=== PATIENT | male | born 1955 | race African-American/Black ===

== ENCOUNTER 2023-08-21 10:49 | Inpatient (IN) | payer OTHER ==
[2023-08-21 12:21] VITALS: BMI 19.3
[2023-08-21] MEDS ORDERED: guaiFENesin 600 MG TABLET.ER (FP) PO PRN (13:32)
[2023-08-21] MEDS ORDERED: BENZONATATE 200 MG CAPSULE PO PRN (13:32)
[2023-08-21] MEDS ORDERED: ACETAMINOPHEN 325 MG TABLET (FP) PO PRN (13:32)
[2023-08-21] MEDS ORDERED: IBUPROFEN 400 MG TABLET (FP) PO PRN (13:32)
[2023-08-21] MEDS ORDERED: BISMUTH SUBSALICYLATE 524 MG/30 ML PO PRN (13:32)
[2023-08-21] MEDS ORDERED: NALOXONE HCL 0.4 MG/ML VIAL IM PRN (13:32)
[2023-08-21] MEDS ORDERED: NICOTINE POLACRILEX 2 MG GUM BUC PRN (13:32)
[2023-08-21] MEDS ORDERED: NALOXONE HCL (KLOXXADO) 8 MG SPRAY NS PRN (13:32)
[2023-08-21] MEDS ORDERED: BACLOFEN 10 MG TABLET (FP) PO PRN (13:32)
[2023-08-21] MEDS ORDERED: MAG HYDROX/AL HYDROX/SIMETH 30 ML UNIT-DOSE CUP PO PRN (13:32)
[2023-08-21] MEDS ORDERED: ONDANSETRON *ODT* 4 MG TABLET SL PRN (13:32)
[2023-08-21] MEDS ORDERED: BENZOCAINE/MENTHOL (CHLORASEPTIC ) LOZENGE MM PRN (13:32)
[2023-08-21] MEDS ORDERED: DICYCLOMINE HCL 10 MG CAPSULE PO PRN (13:32)
[2023-08-21] MEDS ORDERED: POLYETHYLENE GLYCOL (HEALTHYLAX) 3350 17 GM PACKET PO PRN (13:32)
[2023-08-21] MEDS ORDERED: MAGNESIUM HYDROX 2400MG/30ML ORAL SUSPENSION 30 ML CUP PO PRN (13:32)
[2023-08-21] MEDS: cloNIDine HCL 0.1 MG TABLET PO PRN ×2 (14:34→22:41)
[2023-08-21] MEDS ORDERED: cloNIDine HCL 0.1 MG TABLET ONE (14:36)
[2023-08-21] MEDS ORDERED: ONDANSETRON *ODT* 4 MG TABLET ONE (14:36)
[2023-08-21] MEDS ORDERED: methaDONE HCL 10 MG TABLET (FOR DETOX USE ONLY) PO ONE (14:45)
[2023-08-21] MEDS ORDERED: methaDONE HCL 10 MG TABLET (FOR DETOX USE ONLY) ONE (14:50)
[2023-08-21] MEDS: LORazepam 1 MG TABLET PO SCH ×2 (17:04→22:28)
[2023-08-21] MEDS: PRAZOSIN HCL 1 MG CAPSULE PO SCH (21:46)
[2023-08-21] MEDS: hydrALAZINE HCL 25 MG TABLET (FP) PO SCH (21:47)
[2023-08-21] MEDS: IBUPROFEN 600 MG TABLET (FP) PO PRN (21:47)
[2023-08-21] MEDS: THIAMINE HCL 100 MG TABLET (FP) PO SCH (21:47)
[2023-08-21] MEDS ORDERED: MELATONIN 5 MG TABLETS PO SCH (22:00)
[2023-08-21] MEDS: LIDOCAINE PATCH REMOVAL MC SCH (22:30)
[2023-08-22] MEDS: LORazepam 1 MG TABLET PO SCH ×4 (05:44→22:17)
[2023-08-22] MEDS: TAMSULOSIN HCL 0.4 MG CAP PO SCH (08:24)
[2023-08-22] MEDS: LIDOCAINE 5% TOPICAL PATCH TP SCH (09:57)
[2023-08-22] MEDS: PRENATAL VITAMINS W/ FOLIC ACID TABLET (FP) PO SCH (09:57)
[2023-08-22] MEDS: FINASTERIDE 5 MG TABLET (FP) PO SCH (09:58)
[2023-08-22] MEDS: hydrALAZINE HCL 25 MG TABLET (FP) PO SCH ×2 (09:58→21:00)
[2023-08-22] MEDS: PRAZOSIN HCL 1 MG CAPSULE PO SCH ×2 (09:58→21:00)
[2023-08-22 10:14] LABS: HEMATOCRIT 39.2 % (35.4-49); HEMOGLOBIN 12.3 GM/dL (11.7-16.9); MCH 26.5 pg (25.7-33.7); MCHC 31.3 g/dl (32.0-35.9); MEAN CELL VOLUME 84.7 fl (80-96); MEAN PLT VOLUME 8.1 fl (7.5-11.1); PLATELET COUNT 245 10^3/uL (134-434); RBC 4.63 M/mm3 (4.00-5.60); RDW 15.7 % (11.9-15.9); WHITE BLOOD COUNT 6.5 K/mm3 (4.0-10.0)
[2023-08-22 10:18] LABS: CHLORIDE 106 mmol/L (98-107); POTASSIUM 4.8 mmol/L (3.5-5.1); SODIUM 139 mmol/L (136-145)
[2023-08-22 10:23] LABS: CALCIUM 8.8 mg/dL (8.5-10.1); GLUCOSE,RANDOM 87 mg/dL (74-106)
[2023-08-22 10:24] LABS: ALBUMIN 3.4 g/dl (3.4-5.0); ANION GAP 5 mmol/L (4-13); BLOOD UREA NITROGEN 32.1 mg/dL (7-18); CO2 28 mmol/L (21-32)
[2023-08-22 10:26] LABS: SGPT/ALT 26 U/L (13-61)
[2023-08-22 10:27] LABS: SGOT/AST 23 U/L (15-37)
[2023-08-22 10:28] LABS: BILIRUBIN,TOTAL 0.5 mg/dL (0.2-1)
[2023-08-22 10:29] LABS: ALK PHOS 65 U/L (45-117)
[2023-08-22 10:31] LABS: TOT PROT 7.5 g/dl (6.4-8.2)
[2023-08-22] MEDS ORDERED: traZODone HCL 100 MG TABLET (FP) PO SCH (22:00)
[2023-08-22] MEDS: THIAMINE HCL 100 MG TABLET (FP) PO SCH (22:17)
[2023-08-22] MEDS: LIDOCAINE PATCH REMOVAL MC SCH (22:18)
[2023-08-22] MEDS: traZODone HCL 50 MG TABLET (FP) PO SCH (22:19)
[2023-08-23] MEDS: IBUPROFEN 600 MG TABLET (FP) PO PRN (00:03)
[2023-08-23] MEDS ORDERED: LORazepam 1 MG TABLET PO SCH (05:00)
[2023-08-23] MEDS ORDERED: LORazepam 0.5 MG TABLET PO SCH (05:52)
[2023-08-23] MEDS: LORazepam 1 MG TABLET PO PRN ×2 (06:18→14:13)
[2023-08-23] MEDS: LORazepam 0.5 MG TABLET PO SCH ×5 (06:37→22:03)
[2023-08-23] MEDS: TAMSULOSIN HCL 0.4 MG CAP PO SCH (08:50)
[2023-08-23] MEDS ORDERED: methaDONE HCL 10 MG TABLET (FOR DETOX USE ONLY) PO ONE (10:00)
[2023-08-23] MEDS: PRENATAL VITAMINS W/ FOLIC ACID TABLET (FP) PO SCH (10:23)
[2023-08-23] MEDS: hydrALAZINE HCL 25 MG TABLET (FP) PO SCH ×2 (10:23→22:02)
[2023-08-23] MEDS: PRAZOSIN HCL 1 MG CAPSULE PO SCH ×2 (10:23→22:02)
[2023-08-23] MEDS: FINASTERIDE 5 MG TABLET (FP) PO SCH (10:23)
[2023-08-23] MEDS: LIDOCAINE 5% TOPICAL PATCH TP SCH (10:25)
[2023-08-23] MEDS ORDERED: FLU VACCINE (FLULAVAL) PF 60 MCG/0.5 ML SYRINGE 2023-2024 IM ONE (15:31)
[2023-08-23] MEDS: traZODone HCL 50 MG TABLET (FP) PO SCH (22:02)
[2023-08-23] MEDS: LIDOCAINE PATCH REMOVAL MC SCH (22:02)
[2023-08-23] MEDS: THIAMINE HCL 100 MG TABLET (FP) PO SCH (22:02)
[2023-08-24] MEDS ORDERED: LORazepam 0.5 MG TABLET PO PRN
[2023-08-24] MEDS: FINASTERIDE 5 MG TABLET (FP) PO SCH (09:26)
[2023-08-24] MEDS: hydrALAZINE HCL 25 MG TABLET (FP) PO SCH (09:26)
[2023-08-24] MEDS: PRENATAL VITAMINS W/ FOLIC ACID TABLET (FP) PO SCH (09:26)
[2023-08-24] MEDS: TAMSULOSIN HCL 0.4 MG CAP PO SCH (09:26)
[2023-08-24] MEDS: PRAZOSIN HCL 1 MG CAPSULE PO SCH (09:26)
[2023-08-24] MEDS: LIDOCAINE 5% TOPICAL PATCH TP SCH (09:27)
[2023-08-24] MEDS ORDERED: LORazepam 0.5 MG TABLET PO SCH (10:00)
[2023-08-24 12:18] LABS: CREATININE 1.9 mg/dL (0.55-1.3)
[2023-08-24 16:56] VITALS: BP 128/89; PULSE 90; RESP 18; TEMP 98
[2023-08-25] MEDS ORDERED: LORazepam 0.5 MG TABLET PO ONE (05:00)
[2023-08-25] MEDS ORDERED: methaDONE HCL 10 MG TABLET (FOR DETOX USE ONLY) PO ONE (10:00)
== END 2023-08-24 18:34 | disposition home or self-care (01) | DRG 773 ==
LOC: YASAS 10:49 → Y3N 15:23
PROVIDERS: ADMIT Allergy & Immunology; ATTEND Surgery
PROC: HZ2ZZZZ Detoxification Services for Substance Abuse Treatment (ICD-10-PCS; principal; 2023-08-21)
DX: F11.23 Opioid dependence with withdrawal (principal); F10.230 Alcohol dependence with withdrawal, uncomplicated; F14.20 Cocaine dependence, uncomplicated; F17.210 Nicotine dependence, cigarettes, uncomplicated; F19.24 Other psychoactive substance dependence with psychoactive substance-induced mood disorder; F31.9 Bipolar disorder, unspecified; I10 Essential (primary) hypertension; M17.0 Bilateral primary osteoarthritis of knee; R26.89 Other abnormalities of gait and mobility; Z91.81 History of falling; Z63.4 Disappearance and death of family member
CPT/HCPCS: 36415; 71046-TC-FY; 80053; 80307; 82565; 84520; 85027; 86780; 87635; 90686; 93005; 93010; G0008; J0475; Q0162

== ENCOUNTER 2023-10-13 10:22 | Inpatient (IN) | payer OTHER ==
[2023-10-13 11:03] VITALS: BMI 19.7
[2023-10-13] MEDS ORDERED: NALOXONE HCL (KLOXXADO) 8 MG SPRAY NS PRN (11:54)
[2023-10-13] MEDS ORDERED: IBUPROFEN 400 MG TABLET (FP) PO PRN (11:54)
[2023-10-13] MEDS ORDERED: LOPERAMIDE HCL 2 MG CAPSULE PO PRN (11:54)
[2023-10-13] MEDS ORDERED: LORazepam 1 MG TABLET PO PRN (11:54)
[2023-10-13] MEDS ORDERED: methaDONE HCL 10 MG TABLET (FOR DETOX USE ONLY) PO ONE (11:54)
[2023-10-13] MEDS ORDERED: MAG HYDROX/AL HYDROX/SIMETH 30 ML UNIT-DOSE CUP PO PRN (11:54)
[2023-10-13] MEDS ORDERED: MAGNESIUM HYDROX 2400MG/30ML ORAL SUSPENSION 30 ML CUP PO PRN (11:54)
[2023-10-13] MEDS ORDERED: BENZOCAINE/MENTHOL (CHLORASEPTIC ) LOZENGE MM PRN (11:54)
[2023-10-13] MEDS ORDERED: POLYETHYLENE GLYCOL (HEALTHYLAX) 3350 17 GM PACKET PO PRN (11:54)
[2023-10-13] MEDS ORDERED: NALOXONE HCL 0.4 MG/ML VIAL IM PRN (11:54)
[2023-10-13] MEDS ORDERED: DICYCLOMINE HCL 10 MG CAPSULE PO PRN (11:54)
[2023-10-13] MEDS ORDERED: IBUPROFEN 600 MG TABLET (FP) PO PRN (11:54)
[2023-10-13] MEDS ORDERED: cloNIDine HCL 0.1 MG TABLET PO PRN (11:54)
[2023-10-13] MEDS ORDERED: guaiFENesin 600 MG TABLET.ER (FP) PO PRN (11:54)
[2023-10-13] MEDS ORDERED: BISMUTH SUBSALICYLATE 262 MG/15 ML BTL PO PRN (11:54)
[2023-10-13] MEDS ORDERED: ONDANSETRON *ODT* 4 MG TABLET SL PRN (11:54)
[2023-10-13] MEDS ORDERED: BENZONATATE 200 MG CAPSULE PO PRN (11:54)
[2023-10-13] MEDS ORDERED: methaDONE HCL 10 MG TABLET (FOR DETOX USE ONLY) ONE (12:50)
[2023-10-13] MEDS ORDERED: NICOTINE 7 MG/24 HOURS TOPICAL PATCH TD ONE (12:50)
[2023-10-13] MEDS ORDERED: PRENATAL VITAMINS W/ FOLIC ACID TABLET (FP) PO ONE (12:50)
[2023-10-13] MEDS: NICOTINE 7 MG/24 HOURS TOPICAL PATCH TD SCH (13:04)
[2023-10-13] MEDS: PRENATAL VITAMINS W/ FOLIC ACID TABLET (FP) PO SCH (13:04)
[2023-10-13] MEDS: LORazepam 1 MG TABLET PO SCH ×2 (17:34→22:12)
[2023-10-13] MEDS: METHOCARBAMOL 500 MG TABLET PO PRN (17:35)
[2023-10-13] MEDS: PRAZOSIN HCL 1 MG CAPSULE PO SCH (22:11)
[2023-10-13] MEDS: THIAMINE HCL 100 MG TABLET (FP) PO SCH (22:11)
[2023-10-13] MEDS: hydrALAZINE HCL 25 MG TABLET (FP) PO SCH (22:12)
[2023-10-13] MEDS: MELATONIN 5 MG TABLETS PO SCH (22:13)
[2023-10-14] MEDS: LORazepam 1 MG TABLET PO SCH ×4 (05:32→22:16)
[2023-10-14] MEDS: ACETAMINOPHEN 325 MG TABLET (FP) PO PRN (05:33)
[2023-10-14] MEDS: TAMSULOSIN HCL 0.4 MG CAP PO SCH (09:30)
[2023-10-14] MEDS: PRAZOSIN HCL 1 MG CAPSULE PO SCH ×2 (10:21→22:16)
[2023-10-14] MEDS: PRENATAL VITAMINS W/ FOLIC ACID TABLET (FP) PO SCH (10:21)
[2023-10-14] MEDS: hydrALAZINE HCL 25 MG TABLET (FP) PO SCH ×2 (10:21→22:16)
[2023-10-14] MEDS: FINASTERIDE 5 MG TABLET (FP) PO SCH (10:21)
[2023-10-14] MEDS: NICOTINE 7 MG/24 HOURS TOPICAL PATCH TD SCH (10:25)
[2023-10-14 10:46] LABS: POTASSIUM 4.3 mmol/L (3.5-5.1)
[2023-10-14 10:56] LABS: HEMATOCRIT 35.9 % (35.4-49); HEMOGLOBIN 11.4 GM/dL (11.7-16.9); MCH 27.3 pg (25.7-33.7); MCHC 31.8 g/dl (32.0-35.9); MEAN CELL VOLUME 85.7 fl (80-96); MEAN PLT VOLUME 8.7 fl (7.5-11.1); PLATELET COUNT 258 10^3/uL (134-434); RBC 4.19 M/mm3 (4.00-5.60); RDW 15.3 % (11.9-15.9); WHITE BLOOD COUNT 4.1 K/mm3 (4.0-10.0)
[2023-10-14 11:02] LABS: BLOOD UREA NITROGEN 26.4 mg/dL (7-18); CALCIUM 8.5 mg/dL (8.5-10.1)
[2023-10-14 11:05] LABS: CREATININE 1.8 mg/dL (0.55-1.3)
[2023-10-14 11:06] LABS: BILIRUBIN,TOTAL 0.3 mg/dL (0.2-1); TOT PROT 7.8 g/dl (6.4-8.2)
[2023-10-14] MEDS ORDERED: PNEUMOC 20-VAL CONJ-DIP CRM/PF 0.5 ML SYRINGE IM ONE (12:00)
[2023-10-14] MEDS ORDERED: LIDOCAINE 4% PATCH TP SCH ×2 (13:15→13:30)
[2023-10-14] MEDS: LIDOCAINE 4% PATCH TP SCH (13:25)
[2023-10-14] MEDS ORDERED: LIDOCAINE PATCH REMOVAL MC SCH (22:00)
[2023-10-14] MEDS: MELATONIN 5 MG TABLETS PO SCH (22:16)
[2023-10-14] MEDS: THIAMINE HCL 100 MG TABLET (FP) PO SCH (22:16)
[2023-10-14] MEDS: LIDOCAINE PATCH REMOVAL MC SCH (22:17)
[2023-10-15] MEDS: LORazepam 1 MG TABLET PO SCH ×4 (05:42→22:44)
[2023-10-15] MEDS: ACETAMINOPHEN 325 MG TABLET (FP) PO PRN (05:42)
[2023-10-15] MEDS: TAMSULOSIN HCL 0.4 MG CAP PO SCH (09:06)
[2023-10-15] MEDS: LIDOCAINE 4% PATCH TP SCH (09:17)
[2023-10-15] MEDS: PRENATAL VITAMINS W/ FOLIC ACID TABLET (FP) PO SCH (09:53)
[2023-10-15] MEDS: hydrALAZINE HCL 25 MG TABLET (FP) PO SCH ×2 (09:53→21:24)
[2023-10-15] MEDS: FINASTERIDE 5 MG TABLET (FP) PO SCH (09:53)
[2023-10-15] MEDS: PRAZOSIN HCL 1 MG CAPSULE PO SCH ×2 (09:53→21:21)
[2023-10-15] MEDS: NICOTINE 7 MG/24 HOURS TOPICAL PATCH TD SCH (09:54)
[2023-10-15] MEDS ORDERED: methaDONE HCL 10 MG TABLET (FOR DETOX USE ONLY) PO ONE (10:00)
[2023-10-15] MEDS: MELATONIN 5 MG TABLETS PO SCH (21:21)
[2023-10-15] MEDS: THIAMINE HCL 100 MG TABLET (FP) PO SCH (21:21)
[2023-10-15] MEDS: METHOCARBAMOL 500 MG TABLET PO PRN (21:21)
[2023-10-15] MEDS: hydrOXYzine PAMOATE 25 MG CAPSULE (FP) PO PRN (21:22)
[2023-10-15] MEDS: LIDOCAINE PATCH REMOVAL MC SCH (21:23)
[2023-10-16] MEDS ORDERED: LORazepam 0.5 MG TABLET PO PRN
[2023-10-16] MEDS: LORazepam 0.5 MG TABLET PO SCH ×4 (05:40→22:09)
[2023-10-16] MEDS: TAMSULOSIN HCL 0.4 MG CAP PO SCH (08:49)
[2023-10-16 10:15] LABS: POTASSIUM 4.7 mmol/L (3.5-5.1)
[2023-10-16 10:17] LABS: CALCIUM 8.9 mg/dL (8.5-10.1)
[2023-10-16 10:18] LABS: BLOOD UREA NITROGEN 23.9 mg/dL (7-18)
[2023-10-16 10:19] LABS: CREATININE 1.8 mg/dL (0.55-1.3)
[2023-10-16] MEDS: PRENATAL VITAMINS W/ FOLIC ACID TABLET (FP) PO SCH (10:29)
[2023-10-16] MEDS: FINASTERIDE 5 MG TABLET (FP) PO SCH (10:30)
[2023-10-16] MEDS: hydrALAZINE HCL 25 MG TABLET (FP) PO SCH ×2 (10:30→22:08)
[2023-10-16] MEDS: PRAZOSIN HCL 1 MG CAPSULE PO SCH ×2 (10:30→22:08)
[2023-10-16] MEDS: NICOTINE 7 MG/24 HOURS TOPICAL PATCH TD SCH (10:31)
[2023-10-16] MEDS: LIDOCAINE 4% PATCH TP SCH (10:32)
[2023-10-16] MEDS: MELATONIN 5 MG TABLETS PO SCH (22:08)
[2023-10-16] MEDS: METHOCARBAMOL 500 MG TABLET PO PRN (22:08)
[2023-10-16] MEDS: THIAMINE HCL 100 MG TABLET (FP) PO SCH (22:08)
[2023-10-16] MEDS: hydrOXYzine PAMOATE 25 MG CAPSULE (FP) PO PRN (22:09)
[2023-10-16] MEDS: LIDOCAINE PATCH REMOVAL MC SCH (23:20)
[2023-10-17] MEDS ORDERED: LORazepam 0.5 MG TABLET PO ONE (05:00)
[2023-10-17] MEDS: TAMSULOSIN HCL 0.4 MG CAP PO SCH (09:32)
[2023-10-17] MEDS ORDERED: methaDONE HCL 10 MG TABLET (FOR DETOX USE ONLY) PO ONE (10:00)
[2023-10-17] MEDS: LIDOCAINE 4% PATCH TP SCH (10:16)
[2023-10-17] MEDS: NICOTINE 7 MG/24 HOURS TOPICAL PATCH TD SCH (10:16)
[2023-10-17] MEDS: hydrALAZINE HCL 25 MG TABLET (FP) PO SCH ×2 (10:16→21:57)
[2023-10-17] MEDS: FINASTERIDE 5 MG TABLET (FP) PO SCH (10:16)
[2023-10-17] MEDS: PRAZOSIN HCL 1 MG CAPSULE PO SCH ×2 (10:16→21:57)
[2023-10-17] MEDS: PRENATAL VITAMINS W/ FOLIC ACID TABLET (FP) PO SCH (10:16)
[2023-10-17] MEDS: METHOCARBAMOL 500 MG TABLET PO PRN (21:57)
[2023-10-17] MEDS: THIAMINE HCL 100 MG TABLET (FP) PO SCH (21:57)
[2023-10-17] MEDS: hydrOXYzine PAMOATE 25 MG CAPSULE (FP) PO PRN (21:57)
[2023-10-17] MEDS: MELATONIN 5 MG TABLETS PO SCH (21:57)
[2023-10-17] MEDS: LIDOCAINE PATCH REMOVAL MC SCH (21:57)
[2023-10-18] MEDS: TAMSULOSIN HCL 0.4 MG CAP PO SCH (09:30)
[2023-10-18] MEDS: PRAZOSIN HCL 1 MG CAPSULE PO SCH (09:55)
[2023-10-18] MEDS: FINASTERIDE 5 MG TABLET (FP) PO SCH (09:55)
[2023-10-18 09:56] VITALS: BP 139/86; PULSE 74; RESP 17; TEMP 97.7
[2023-10-18] MEDS: hydrALAZINE HCL 25 MG TABLET (FP) PO SCH (09:56)
[2023-10-18] MEDS: LIDOCAINE 4% PATCH TP SCH (09:56)
[2023-10-18] MEDS: PRENATAL VITAMINS W/ FOLIC ACID TABLET (FP) PO SCH (09:58)
[2023-10-18] MEDS: NICOTINE 7 MG/24 HOURS TOPICAL PATCH TD SCH (09:58)
== END 2023-10-18 09:59 | disposition home or self-care (01) | DRG 773 ==
LOC: YASAS 10:22 → Y3N 13:04
PROVIDERS: ADMIT Allergy & Immunology; ATTEND Allergy & Immunology
PROC: HZ2ZZZZ Detoxification Services for Substance Abuse Treatment (ICD-10-PCS; principal; 2023-10-13)
DX: F11.23 Opioid dependence with withdrawal (principal); F10.230 Alcohol dependence with withdrawal, uncomplicated; F14.20 Cocaine dependence, uncomplicated; F17.210 Nicotine dependence, cigarettes, uncomplicated; F31.9 Bipolar disorder, unspecified; F19.24 Other psychoactive substance dependence with psychoactive substance-induced mood disorder; M17.0 Bilateral primary osteoarthritis of knee; M54.50 Low back pain, unspecified; G89.29 Other chronic pain; R79.89 Other specified abnormal findings of blood chemistry; Z62.810 Personal history of physical and sexual abuse in childhood; Z63.8 Other specified problems related to primary support group
CPT/HCPCS: 36415; 80048; 80053; 80307; 82962; 85027; 86780; 87635; 90677; Q0162